=== PATIENT | female | born 1980 | race Two or more races ===

== ENCOUNTER 2017-09-20 10:50 | Emergency (ER) | payer SELFPAY ==
[2017-09-20 10:57] VITALS: BP 116/76
[2017-09-20] MEDS ORDERED: HYDROCODONE/ACETAMINOPHEN 5-325 MG TABLET PO ONE (12:14)
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
--- NOTE | 2017-09-20 14:04 | RADIOLOGY REPORT (SQ) ---
EXAM DESCRIPTION: VENOUS UNILATERAL LOWER COMPLETED DATE/TIME: 09/20/2017 1:54 pm REASON FOR STUDY: RLE pain COMPARISON: None. TECHNIQUE: Dynamic and static loco scale and color images acquired of the right leg venous system. S elected spectral images acquired with additional compression and augmentation maneuvers. The contrala teral common femoral vein and saphenofemoral junction were also imaged. Images stored on PACS. LIMITATIONS: None. FINDINGS: RIGHT COMMON FEMORAL: Normal phasicity, compression and augmentation. No visualized echogenic material on g ray scale. No defects on color images. FEMORAL: Normal compression and augmentation. No visualized echogenic material on loco scale. No defe cts on color images. POPLITEAL: Normal compression, augmentation. No visualized echogenic material on loco scale. No defec ts on color images. CALF VESSELS: Normal compression, augmentation. No visualized echogenic material on loco scale. No de fects on color images. GSV and SSV: Normal compression, augmentation. No visualized echogenic material on loco scale. No def ects on color images. ANY DEEP VENOUS INSUFFICIENCY: Not evaluated. ANY EVIDENCE OF POPLITEAL CYST: No. OTHER: No other significant finding. LEFT COMMON FEMORAL VEIN AND SAPHENOFEMORAL JUNCTION: Normal phasicity, compression and augmentation. No visualized echogenic material on loco scale. No de fects on color images. IMPRESSION: NO EVIDENCE OF DVT OR SVT IN THE RIGHT LEG. TECHNICAL DOCUMENTATION: JOB ID: [id number] [employer]- All Rights Reserved
== END 2017-09-20 14:50 | disposition home or self-care (01) ==
LOC: ER 10:50 → EDBD 10:50 → ER 14:50
DX: K02.9 Dental caries, unspecified (principal); H92.01 Otalgia, right ear; M79.651 Pain in right thigh; G89.29 Other chronic pain; V99.XXXS Unspecified transport accident, sequela; N64.59 Other signs and symptoms in breast
CPT/HCPCS: 93971; 99283